=== PATIENT | female | born 1965 | race Caucasian/White ===

== ENCOUNTER → 2016-07-03 | Outpatient (CLI) | payer BC | LOC: LAB 11:04 | DX: N76.0 Acute vaginitis (principal); R30.0 Dysuria ==

== ENCOUNTER → 2017-10-30 | Outpatient (CLI) | payer BC ==
[2017-10-30 16:06] LABS: D-DIMER 0.12 mg/L FEU (0.15-0.50)
== END ==
LOC: LAB 15:05
PROVIDERS: Nurse Practitioner Family
DX: M79.661 Pain in right lower leg (principal)

== ENCOUNTER → 2018-01-29 | Outpatient (CLI) | payer BC ==
[2018-01-29 12:08] LABS: EOS # 0.1 (0.04-0.40); EOS % 3.1 % (1.0-5.0); HEMATOCRIT 41.8 % (37.0-47.0); HEMOGLOBIN 13.9 g/dL (12.5-16.0); MEAN CELL VOLUME 87 fl (78-100); MEAN CORPUSCULAR HEMOGLOBIN 29 pg (27-31); MEAN CORPUSCULAR HGB CONC 33 g/dL (33-37); MEAN PLATELET VOLUME 10.2 fl (7.4-10.4); MONO # 0.4 (0.20-0.80); NEU # 2.7 (1.40-6.50); PLATELET COUNT 207 K/mm3 (130-400); RED BLOOD COUNT 4.82 M/mm3 (4.10-5.30); RED CELL DISTRIBUTION WIDTH 13.7 % (11.5-14.5); WHITE BLOOD COUNT 4.2 K/mm3 (4.8-10.8)
[2018-01-29 12:18] LABS: ALBUMIN 4.2 g/dL (3.5-5.0); CALCIUM 8.9 mg/dL (8.4-10.2); POTASSIUM 4.4 mmol/L (3.6-5.0); TOTAL BILIRUBIN 0.5 mg/dL (0.2-1.3); TOTAL PROTEIN 7.2 g/dL (6.3-8.2)
== END ==
LOC: LAB 11:45
PROVIDERS: Nurse Practitioner Family
DX: R10.9 Unspecified abdominal pain (principal)

== ENCOUNTER → 2021-11-22 | Outpatient (CLI) | payer BC | LOC: CARDREHAB 08:00 | DX: R06.00 Dyspnea, unspecified (principal) | CPT/HCPCS: A9500 ==

== ENCOUNTER → 2021-11-22 | Outpatient (CLI) | payer BC | LOC: VAS 13:35 → RAD 13:35 | DX: R06.00 Dyspnea, unspecified (principal) ==

== ENCOUNTER → 2023-12-03 | Outpatient (CLI) | payer BC | LOC: RAD 09:42 | DX: S09.93XA Unspecified injury of face, initial encounter (principal); W01.0XXA Fall on same level from slipping, tripping and stumbling without subsequent striking against object, initial encounter ==

== ENCOUNTER → 2024-01-29 | Outpatient (CLI) | payer BC | LOC: RAD 07:40 | DX: N13.30 Unspecified hydronephrosis (principal) ==

== ENCOUNTER → 2024-02-01 | Outpatient (CLI) | payer BC | LOC: VAS 15:32 | DX: R93.1 Abnormal findings on diagnostic imaging of heart and coronary circulation (principal) ==

== ENCOUNTER → 2024-02-19 | Outpatient (CLI) | payer BC ==
[~2024-02-19] VITALS: Ht 172.7 cm; Wt 104.3 kg
== END ==
LOC: CARDREHAB 09:23
DX: R06.00 Dyspnea, unspecified (principal)
CPT/HCPCS: A9500